=== PATIENT | female | born 1930 | race Caucasian/White ===

== ENCOUNTER → 2016-10-03 | Outpatient (CLI) | payer OTHER, MEDICARE ==
[~2016-10-03] MED LIST: ASPEC81 PO; B-COTAB18 PO; BNC20 PO; CALC500C70 PO; CHOL1CAP57 PO; HYDR-5688 PO; IBAN150T PO; LEVO100T7 PO; METO25TA3 PO; SNM/25100 PO
[2016-10-03 08:37] LABS: MEAN CELL VOLUME 88.4 fL (80-100); MEAN CORPUSCULAR HEMOGLOBIN 28.7 pg (25-34); MEAN CORPUSCULAR HGB CONC 32.4 g/dl (32-36); MEAN PLATELET VOLUME 9.4 fL (7.4-10.4); PLATELET COUNT 271 K/uL (130-400); RED BLOOD COUNT 4.64 M/uL (4.2-5.4); WHITE BLOOD COUNT 5.49 K/uL (4.8-10.8)
[2016-10-03 08:44] LABS: BLOOD UREA NITROGEN 16 mg/dl (7-18); CARBON DIOXIDE 29 mmol/L (21-32); CHLORIDE 106 mmol/L (98-107); CREATININE 0.89 mg/dl (0.60-1.20); GLUCOSE 89 mg/dl (70-99); POTASSIUM 4.4 mmol/L (3.5-5.1); SODIUM 142 mmol/L (136-145)
[2016-10-03 09:16] LABS: CALCIUM 8.8 mg/dl (8.5-10.1)
[2016-10-03 10:15] LABS: COMPLETE YES; EOSINOPHIL % 6.1 %; LARGE GRANULAR LYMPH ABSOLUTE 1.35 K/uL; LARGE GRANULAR LYMPHOCYTE % 24.6 %; LYMPH ABS # 1.97 K/uL (1.2-3.4); LYMPHOCYTE % 35.9 %; NEUTROPHILS % 28.1 %
== END | disposition home or self-care (01) ==
LOC: C.LABFOXMH 08:22
PROVIDERS: ATTEND Orthopaedic Surgery
DX: M65.342 Trigger finger, left ring finger (principal); I10 Essential (primary) hypertension

== ENCOUNTER → 2016-10-13 | Day surgery (SDC) | payer OTHER, MEDICARE ==
[2016-09-29 08:44] VITALS: Ht 167.6 cm; Wt 61.4 kg
[~2016-10-13] VITALS: Ht 167.6 cm; Wt 61.4 kg
[~2016-10-13] MED LIST changes: +ATROPINE SULFATE 0.1 MG/ML 5ML SYR IV PRN; +BUPIVACAINE 0.25% 2.5MG/ML PF 10 ML VIAL INFIL ONE; +CEFAZOLIN 2000 MG/60 ML D5W IV SCH; +DEXAMETHASONE SOD INJ 4 MG/ML VIAL ONE; +FENTANYL CITRATE INJ 50 MCG/1 ML 2 ML VIAL IV PRN; +FENTANYL CITRATE INJ 50 MCG/1 ML 2 ML VIAL ONE; +HYDROCODONE/ACETAMOPHEN 5/325MG TAB PO PRN; +LACTATED RINGER'S 1000ML 1,000 ML IV SCH; +LIDOCAINE HCL 2% 2 ML VIAL (20MG/ML) ONE; +LIDOCAINE HCL 2% LOCAL 20 ML VIAL ONE; +MIDAZOLAM HCL 1 MG/ML 2ML VIAL ONE; +ONDANSETRON INJ 2 MG/ML 2 ML VIAL IV PRN; +ONDANSETRON INJ 2 MG/ML 2 ML VIAL ONE; +PROPOFOL IV EMULSION 10 MG/ML 20 ML VIAL IV ONE; +SODIUM CHLORIDE 0.9% 1000ML 1,000 ML IV SCH
--- NOTE | 2016-10-13 07:01 | History & Physical Bridge - [place] ---
H&P Re-Evaluation Bridge Note: I have examined the patient, reviewed the History & Physical and in the interval since the performance of the History & Physical I have noted the following changes of clinical significance: No changes noted
[2016-10-13 08:49] VITALS: TEMP 36.4
--- NOTE | 2016-10-13 08:50 | Discharge Instructions-SurgCtr ---
Discharge Instructions Date of Service October 13, 2016. Visit Reason for Visit: Triggering Of Digit Discharge Discharge Diagnosis / Problem: SAME ABOVE Discharge Goals Goal(s): Decrease discomfort, Improve function Medications Stopped Medications Name(s): no blood thinners Restart Stopped Medication(s): MAY RESTART 10/14/2016 Activity Recommendations Activity Limitations: as noted below Lifting Limitations: gradually increase as tolerated Driving or Machine Use: resume 1 day after discharge Anesthesia . Post Anesthesia Instructions: If you have had General Anesthesia or IV Sedation: * Do not drive today. * Resume driving when surgeon permits. * Do not make important decisions or sign legal documents today. * Call surgeon for: 1. Temperature elevations greater than 101 degrees F. 2. Uncontrollable pain. 3. Excessive bleeding. 4. Persistent nausea and vomiting. 5. Medication intolerance (nausea, vomiting or rash). * For nausea and vomiting use only clear liquids such as: tea, soda, bouillon until nausea subsides, then gradually increase diet as tolerated. * If you have any concerns or questions, call your surgeon's office. If physician is unavailable and it is an emergency, call 911 or go to the nearest emergency room. . Instructions / Follow-Up Instructions / Follow-Up MEDICATIONS: * Resume previous medications unless instructed otherwise by your surgeon. * Always take pain medication on a full stomach or with food to avoid upset stomach. * Do not drink alcohol or drive while taking narcotics. * Ibuprofen or Tylenol may be taken if narcotic not needed. SPECIAL CARE INSTRUCTIONS: __ None _X_ Keep extremity elevated and iced x 48 hours; apply ice 20-30 minutes 8-10 times/day. May remove at night. __ Sling __24 hrs/day __ Remove at night __ Shoulder Immobilizer __ 24 hrs/day __ Remove at night _X_ Dressing __ Maintain until seen in office, may shower with plastic over site _X_ Remove dressings in 5 DAYS. MAY SHOWER SOONER IF COVERED WITH PLASTIC BAG _X_ Cover incisions with band-aids after showering __ Do not remove steri-strips Call physician if chills or temperature rises above 102 degrees or pain unrelieved by prescribed pain medications at . . Diet Recommendations Home Diet: no limitations Fluid Restriction: None Pending Studies Studies pending at discharge: no Work Instructions Lifting Limitations: no more than 10 pounds Medical Emergencies . Who to Call and When: Medical Emergencies: If at any time you feel your situation is an emergency, please call 911 immediately. . Non-Emergent Contact Non-Emergency issues call your: Primary Care Provider Call Non-Emergent contact if: you have a fever, temperature is above 101.5 . . "Provider Documentation" section prepared by Henok Santos. .
--- NOTE | 2016-10-13 09:15 | Anesthesia Progress Nt - [facility] ---
Anesthesia Post Op Note Date & Time October 13, 2016 at 09:15 Vital Signs Pain Intensity: 0 Vital Signs Past 12 Hours Date Time Temp Pulse Resp B/P Pulse Ox O2 Delivery O2 Flow Rate FiO2 10/13/16 08:49 36.4 59 20 131/59 99 Room Air 10/13/16 07:49 36.5 59 16 130/77 96 Room Air Notes Mental Status: alert / awake / arousable, participated in evaluation Pt Amnestic to Procedure: Yes Nausea / Vomiting: adequately controlled Pain: adequately controlled Airway Patency, RR, SpO2: stable & adequate BP & HR: stable & adequate Hydration State: stable & adequate Anesthetic Complications: no major complications apparent
[2016-10-13 09:24] VITALS: BP 150/76; PULSE 56; O2SAT 97
--- NOTE | 2016-10-13 09:46 | [facility] Post Operative Brief Note ---
Immediate Operative Summary Operative Date October 13, 2016. Pre-Operative Diagnosis Left Hand Dequervains, Left Ring Finger Trigger Finger Post-Operative Diagnosis Same Procedure(s) Performed Left Hand Dequervains Release With Left Ring Finger Trigger Finger Release Surgeon Dr. Perez [employer] Surgeon(s) Leoncio Santos PA-C Estimated Blood Loss 2ml Findings as above Specimens None Complication(s) None Disposition Recovery Room / PACU
--- NOTE | 2016-10-13 10:43 | OPERATIVE REPORT ---
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 POSTOPERATIVE DIAGNOSIS: Same. PROCEDURES: Open left de Quervain's release as well as an open left trigger finger release of the ring finger. SURGEON: Dr. Danny Perez. OCEAN RESCUE LIEUTENANT: Ketan Santos PA-C, whose assistance was necessary for retraction and positioning the hand. ANESTHESIA: Local with sedation. COMPLICATIONS: None. CONDITION: Stable to PACU. INDICATIONS: [place] is a pleasant 85-year-old female who presented to my office with significant triggering of her left ring finger and severe pain over the first dorsal compartment of her left wrist. After failing extensive conservative treatment, she elected to undergo open release. OPERATION AND FINDINGS: On 10/13/2016 she arrived at [facility] for the above procedure. She was seen in the preoperative holding area and the operative extremity was identified and signed. She was given a preoperative antibiotic, taken back to the operating room, laid on the table in supine position and given basic sedation. The left hand and wrist was prepped and draped in sterile fashion. Time-out was done and the patient and operative extremity was properly identified. Local injection was placed at the surgical site of both the trigger finger release and the first dorsal compartment. Trigger finger was done first. A longitudinal incision was made directly over the A1 giorgio. Dissection was taken down through the fascia with care not to disrupt the digital nerves. The A1 giorgio was easily identified and was released with a sharp knife and tenotomy scissors. Complete resection was checked both proximally and distally. The tendon was pulled out of the wound and it moved freely without triggering. The wound was then irrigated and closed with 4-0 nylon sutures. Attention was then turned to the wrist. A longitudinal incision was made directly over the first dorsal compartment. Care was taken not to disrupt the superficial radial nerve. The first compartment was identified and then released with a knife and tenotomy scissors. Complete resection was checked both proximally and distally. Additional compartment was also evaluated for beneath the tendons. The wound was then irrigated and closed with 4-0 nylon sutures. She was then placed in a soft dressing and taken to the postanesthesia care unit in stable condition. She tolerated the procedure well. I attest to the content of the Intraoperative Record and any orders documented therein. Any exceptio ns are noted below.
== END | disposition home or self-care (01) ==
LOC: X.SURG 07:27
PROVIDERS: ATTEND Orthopaedic Surgery
DX: M65.4 Radial styloid tenosynovitis [de Quervain] (principal); M65.342 Trigger finger, left ring finger; G20 Parkinson's disease

== ENCOUNTER → 2017-01-12 | Outpatient (CLI) | payer OTHER, MEDICARE ==
[~2017-01-12] MED LIST changes: -ATROPINE SULFATE 0.1 MG/ML 5ML SYR IV PRN; -BUPIVACAINE 0.25% 2.5MG/ML PF 10 ML VIAL INFIL ONE; -CEFAZOLIN 2000 MG/60 ML D5W IV SCH; -DEXAMETHASONE SOD INJ 4 MG/ML VIAL ONE; -FENTANYL CITRATE INJ 50 MCG/1 ML 2 ML VIAL IV PRN; -FENTANYL CITRATE INJ 50 MCG/1 ML 2 ML VIAL ONE; -HYDROCODONE/ACETAMOPHEN 5/325MG TAB PO PRN; -LACTATED RINGER'S 1000ML 1,000 ML IV SCH; -LIDOCAINE HCL 2% 2 ML VIAL (20MG/ML) ONE; -LIDOCAINE HCL 2% LOCAL 20 ML VIAL ONE; -MIDAZOLAM HCL 1 MG/ML 2ML VIAL ONE; -ONDANSETRON INJ 2 MG/ML 2 ML VIAL IV PRN; -ONDANSETRON INJ 2 MG/ML 2 ML VIAL ONE; -PROPOFOL IV EMULSION 10 MG/ML 20 ML VIAL IV ONE; -SODIUM CHLORIDE 0.9% 1000ML 1,000 ML IV SCH
--- NOTE | 2017-01-12 13:58 | MAMMOGRAPHY REPORT ---
BILATERAL DIGITAL DIAGNOSTIC MAMMOGRAM TOMOSYNTHESIS WITH CAD AND TARGETED RIGHT ULTRASOUND: 7 CLINICAL HISTORY: The patient reports a focal area of tenderness in her right breast. She denies any palpable lumps or other complaints. TECHNIQUE: Breast tomosynthesis in addition to standard 2D mammography was performed. Current study was also evaluated with a Computer Aided Detection (CAD) system. Bilateral CC and MLO 2-D and tomosy nthesis images were obtained. COMPARISON: Comparison is made to exams dated: 11/06/2013 mammogram, 10/25/2012 mammogram, 10/25/2011 nannette mogram, 02/24/2011 mammogram, 02/22/2010 mammogram - [facility], and 02/20/2009. BREAST COMPOSITION: There are scattered areas of fibroglandular density in both breasts. FINDINGS: A circular marker samuel the tender area pointed out by the patient in the right superior br east at approximately 12:00. There are no suspicious masses, calcifications, or areas of architectur al distortion noted in either breast mammographically. There has been no significant interval change compared to prior exams. Scattered bilateral benign-appearing calcifications are stable. Targeted ultrasound was performed of the focal tender area pointed out by the patient, in the right b reast at approximately 1:00, 5 cm from the nipple. Sonographically normal tissue is seen in this reg ion, without evidence of a mass or other suspicious sonographic abnormality. IMPRESSION: ACR BI-RADS CATEGORY 2: BENIGN, TARGETED ULTRASOUND ACR BI-RADS CATEGORY 2: BENIGN No suspicious mammographic or sonographic abnormality at the site of the focal area of tenderness poi nted out by the patient in the right breast. There is no mammographic or targeted sonographic eviden ce of malignancy. Recommend clinical follow-up, and recommend routine bilateral screening mammograms in one year unless otherwise clinically indicated. The patient has been verbally notified of the results. Approximately 10% of breast cancers are not detected with mammography. A negative mammographic report should not delay biopsy if a clinically suggestive mass is present. China Richardson M.D. /:01/12/2017 10:53:10 Pump Stitcher: Nina LIU)(Natan), [facility] letter sent: Normal 1/2 BI-RADS Code: ACR BI-RADS Category 2: Benign Ultrasound BI-RADS: ACR BI-RADS Category 2: Benign
== END | disposition home or self-care (01) ==
LOC: C.MAMM 10:23
PROVIDERS: ATTEND Internal Medicine
DX: N64.4 Mastodynia (principal)

== ENCOUNTER → 2017-02-23 | Outpatient (CLI) | payer OTHER, MEDICARE ==
[2017-02-23 09:06] LABS: BLOOD UREA NITROGEN 12 mg/dl (7-18); BUN/CREATININE RATIO 12.4 (10-20); CALCIUM 9.4 mg/dl (8.5-10.1); CARBON DIOXIDE 30 mmol/L (21-32); CHLORIDE 105 mmol/L (98-107); GLUCOSE 90 mg/dl (70-99); POTASSIUM 4.2 mmol/L (3.5-5.1); SODIUM 140 mmol/L (136-145)
[2017-02-23 09:16] LABS: THYROID STIMULATING HORMONE 0.815 uIu/ml (0.300-4.500)
== END | disposition home or self-care (01) ==
LOC: C.LABFOXMH 08:45
PROVIDERS: ATTEND Internal Medicine
DX: I51.7 Cardiomegaly (principal)

== ENCOUNTER → 2017-12-21 | Outpatient (CLI) | payer OTHER, MEDICARE ==
[~2017-12-21] MED LIST changes: -HYDR-5688 PO
== END ==
LOC: C.LABFOXMH 09:17
PROVIDERS: ATTEND Internal Medicine
DX: E03.9 Hypothyroidism, unspecified (principal)